=== PATIENT | female | born 1980 ===

== ENCOUNTER 2021-01-14 13:27 | Emergency (ER) | payer SELFPAY ==
[2021-01-14] MEDS ORDERED: cefTRIAXone 1 GM, Lidocaine 1% 2.1 ML IM ONE ×2 (13:46)
--- NOTE | 2021-01-14 13:50 | EDM.PDOC ---
ED HPI GENERAL MEDICAL PROBLEM - General Chief Complaint: Genitourinary Problem Stated Complaint: POSSIBLE UTI Time Seen by Provider: 01/14/21 13:46 Source of Information: Reports: Patient History Limitations: Reports: No Limitations - History of Present Illness INITIAL COMMENTS - FREE TEXT/NARRATIVE: Patient is a unfortunate 40-year-old female who presents emerged part today with complaint of dysuria frequency urgency. Patient reports that she was in her normal state of health until last evening when she started having dysuria frequency and urgency. The patient reports that she is here visiting and when her symptoms progressed today she presented emergency department for further evaluation. She reports that she had similar episodes about once every year or 2 which have been consistently been bladder infections. She denies any nausea no vomiting no vaginal discharge no back pain no fever no chills Bladder Pain Score (Numeric/FACES): 3 - Related Data Allergies Allergy/AdvReac Type Severity Reaction Status Date / Time No Known Allergies Allergy Verified 01/14/21 13:36 Home Meds: Home Meds Levothyroxine Sodium [Synthroid] 0 mcg PO DAILY 01/14/21 [History] Phenazopyridine HCl [Pyridium] 200 mg PO TID PRN #9 tablet 01/14/21 [Rx] cephALEXin [Keflex] 500 mg PO QID #28 cap 01/14/21 [Rx] Past Medical History HEENT History: Reports: None Cardiovascular History: Reports: None Respiratory History: Reports: None Gastrointestinal History: Reports: None 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, Other (See Below) Other STORE STANDARDS ASSOCIATE History: ablation Musculoskeletal History: Reports: None Neurological History: Reports: None Psychiatric History: Reports: None Endocrine/Metabolic History: Reports: Hypothyroidism Hematologic History: Reports: None Immunologic History: Reports: None Oncologic (Cancer) History: Reports: None Dermatologic History: Reports: None - Infectious Disease History Infectious Disease History: Reports: None - Past Surgical History Head Surgeries/Procedures: Reports: None Female Surgical History: Reports: Section Social & Family History - Family History Family Medical History: Unobtainable - Tobacco Use Tobacco Use Status *Q: Never Tobacco User Second Hand Smoke Exposure: No - Caffeine Use Caffeine Use: Reports: Coffee - Recreational Drug Use Recreational Drug Use: No ED ROS GENERAL - Review of Systems Review Of Systems: See Below Constitutional: Denies: Fever, Chills : Reports: Dysuria, Frequency, Urgency ED EXAM, RENAL/ - Physical Exam Exam: See Below Exam Limited By: No Limitations General Appearance: Alert, WD/WN, Mild Distress Respiratory/Chest: No Respiratory Distress, Lungs Clear, Normal Breath Sounds, No Accessory Muscle Use, Chest Non-Tender Cardiovascular: Normal Peripheral Pulses, Regular Rate, Rhythm, No Edema, No Gallop, No JVD, No Murmur, No Rub GI/Abdominal: Normal Bowel Sounds, Soft, No Distention, No Abnormal Bruit, No Mass, Pelvis Stable, Tender (Suprapubic mild) Back Exam: Normal Inspection, Full Range of Motion, NT Neurological: Alert, Oriented, CN II-XII Intact, Normal Cognition, Normal Gait, Normal Reflexes, No Motor/Sensory Deficits Skin Exam: Warm, Dry, No Rash Course - Vital Signs Text/Narrative:: The patient symptomatically has UTI, we will draw a urinalysis for culture, we will treat the patient based off her symptoms have patient follow-up outpatient with PCP in a week or return the emergency department for any worsening condition Last Recorded V/S: Last Vital Signs Temp 97.5 F 01/14/21 13:37 Pulse 80 01/14/21 13:37 Resp 16 01/14/21 13:37 BP 130/65 01/14/21 13:37 Pulse Ox 100 01/14/21 13:37 - Orders/Labs/Meds Orders: Active Orders 24 hr Category Date Time Status UA RFX LIYA AND CULT IF INDIC [URIN] Stat Lab 01/14/21 13:46 Ordered UA W/LIYA RFLX IF INDICATED [URIN] Stat Lab 01/14/21 13:46 Ordered cefTRIAXone 1 GM,Lidocaine 1% 2.1 ML Med 01/14/21 13:46 Ordered cefTRIAXone [Rocephin] 1 gm Lidocaine 1% [Xylocaine-MPF 1%] 2.1 ml IM ONETIME Departure - Departure Time of Disposition: 13:48 Disposition: Home, Self-Care 01 Condition: Good Clinical Impression: UTI, Urinary tract infectious disease - Discharge Information *PRESCRIPTION DRUG MONITORING PROGRAM REVIEWED*: No *COPY OF PRESCRIPTION DRUG MONITORING REPORT IN PATIENT SHAQ: No Prescriptions: cephALEXin [Keflex] 500 mg PO QID #28 cap Phenazopyridine HCl [Pyridium] 200 mg PO TID PRN #9 tablet PRN Reason: Pain Instructions: Urinary Tract Infection, Adult, [id number] Additional Instructions: Home, rest, adequate fluids, follow-up with your PCP in 1 week, return as needed for worsening condition Sepsis Event Note (ED) - Evaluation Sepsis Screening Result: No Definite Risk - Focused Exam Vital Signs: Vital Signs Temp Pulse Resp BP Pulse Ox 01/14/21 13:37 97.5 F 80 16 130/65 100 - My Orders Last 24 Hours: My Active Orders 01/14/21 13:46 UA RFX LIYA AND CULT IF INDIC [URIN] Stat UA W/LIYA RFLX IF INDICATED [URIN] Stat cefTRIAXone 1 GM,Lidocaine 1% 2.1 ML cefTRIAXone [Rocephin] 1 gm Lidocaine 1% [Xylocaine-MPF 1%] 2.1 ml IM ONETIME - Assessment/Plan Last 24 Hours: My Active Orders 01/14/21 13:46 UA RFX LIYA AND CULT IF INDIC [URIN] Stat UA W/LIYA RFLX IF INDICATED [URIN] Stat cefTRIAXone 1 GM,Lidocaine 1% 2.1 ML cefTRIAXone [Rocephin] 1 gm Lidocaine 1% [Xylocaine-MPF 1%] 2.1 ml IM ONETIME
== END 2021-01-14 14:13 ==
LOC: DL.ED 13:27
DX: N39.0 Urinary tract infection, site not specified (principal); E03.9 Hypothyroidism, unspecified; Z79.899 Other long term (current) drug therapy
CPT/HCPCS: 81001; 87086; 87088; 87186; 96372; 99283; J0696